=== PATIENT | female | born 1985 | race Caucasian/White ===

== ENCOUNTER 2020-04-08 15:17 | Observation (INO) | payer MEDICAID ==
[~2020-04-08] VITALS: Ht 149.9 cm; Wt 75.7 kg
[2020-04-08 16:38] LABS: CLARITY URINE CLEAR (CLEAR); COLOR URINE YELLOW (YELLOW); KETONES URINE NEGATIVE (NEGATIVE); LEUKOCYTE ESTERASE URINE 3+ (NEGATIVE); NITRITE URINE NEGATIVE (NEGATIVE); OCCULT BLOOD URINE NEGATIVE (NEGATIVE); PROTEIN URINE NEGATIVE (NEGATIVE); SPECIFIC GRAVITY URINE 1.009 (1.005-1.030); UROBILINOGEN URINE 0.2 E.U./dL (0.2-1.0)
== END 2020-04-08 17:07 | disposition home or self-care (01) ==
LOC: 8 EST LDRP 15:17
PROVIDERS: ADMIT Obstetrics & Gynecology; ATTEND Obstetrics & Gynecology
DX: O26.892 Other specified pregnancy related conditions, second trimester (principal); R10.9 Unspecified abdominal pain; Z3A.22 22 weeks gestation of pregnancy
CPT/HCPCS: 59025; 81003; G0378; 99281

== ENCOUNTER 2020-05-27 19:38 | Observation (INO) | payer MEDICAID ==
[~2020-05-27] VITALS: Ht 149.9 cm; Wt 83.0 kg
[2020-05-27] MEDS ORDERED: CALC-1098 PO (20:51)
[2020-05-27] MEDS ORDERED: FERR325T6 PO (20:51)
[2020-05-27] MEDS ORDERED: PNV1TABL50 PO (20:51)
[2020-05-27 22:22] LABS: T4 FREE 0.88 ng/dL (0.76-1.46)
== END 2020-05-27 23:00 | disposition home or self-care (01) ==
LOC: 8EST NSY 19:38 → 8 EST A/PP 20:12
PROVIDERS: ADMIT Obstetrics & Gynecology; ATTEND Obstetrics & Gynecology
DX: O99.413 Diseases of the circulatory system complicating pregnancy, third trimester (principal); R00.2 Palpitations; Z86.32 Personal history of gestational diabetes; Z86.39 Personal history of other endocrine, nutritional and metabolic disease; Z3A.28 28 weeks gestation of pregnancy
CPT/HCPCS: 36415; 59025; 76805; 76818; 82731; 84439; 84443; 84480; 93005; G0378; 84481; 99281

== ENCOUNTER 2020-06-20 04:30 | Observation (INO) | payer MEDICAID ==
[~2020-06-20] VITALS: Ht 149.9 cm; Wt 83.9 kg
[~2020-06-20 04:30] MED LIST: CALC-1098 PO; FERR325T6 PO; PNV1TABL50 PO
[2020-06-20] MEDS ORDERED: TERBUTALINE SULFATE 1MG/ML VIAL SUBCUT PRN (06:00)
[2020-06-20] MEDS ORDERED: LACTATED RINGERS 1,000 ML IV SCH (06:00)
[2020-06-20 06:32] LABS: CLARITY URINE CLEAR (CLEAR); COLOR URINE YELLOW (YELLOW); KETONES URINE NEGATIVE (NEGATIVE); LEUKOCYTE ESTERASE URINE 3+ (NEGATIVE); NITRITE URINE NEGATIVE (NEGATIVE); OCCULT BLOOD URINE NEGATIVE (NEGATIVE); PH URINE 6.5 (4.5-8.0); PROTEIN URINE NEGATIVE (NEGATIVE); SPECIFIC GRAVITY URINE 1.012 (1.005-1.030); UROBILINOGEN URINE 0.2 E.U./dL (0.2-1.0)
[2020-06-20] MEDS ORDERED: CEFAZOLIN 2,000 MG in DEXT 5% WATER 100 ML IV SCH (09:00)
== END 2020-06-20 09:50 | disposition home or self-care (01) ==
LOC: 8 EST LDRP 04:30
PROVIDERS: ADMIT Obstetrics & Gynecology; ATTEND Obstetrics & Gynecology
DX: O26.893 Other specified pregnancy related conditions, third trimester (principal); R10.30 Lower abdominal pain, unspecified; Z3A.32 32 weeks gestation of pregnancy
CPT/HCPCS: 59025; 81003; 82731; 87086; 96361; 96365; 96372; G0378; J0690; J3105; J7060; 96360; 99281

== ENCOUNTER 2020-07-02 20:07 | Observation (INO) | payer MEDICAID ==
[~2020-07-02] VITALS: Ht 149.9 cm; Wt 81.6 kg
[2020-07-02] MEDS ORDERED: TERBUTALINE SULFATE 1MG/ML VIAL SUBCUT SCH (21:30)
[2020-07-02] MEDS ORDERED: LACTATED RINGERS 1,000 ML IV SCH (21:30)
[2020-07-02 22:18] LABS: CLARITY URINE CLEAR (CLEAR); COLOR URINE YELLOW (YELLOW); KETONES URINE TRACE (NEGATIVE); LEUKOCYTE ESTERASE URINE 2+ (NEGATIVE); NITRITE URINE NEGATIVE (NEGATIVE); OCCULT BLOOD URINE NEGATIVE (NEGATIVE); PH URINE 6.5 (4.5-8.0); PROTEIN URINE NEGATIVE (NEGATIVE); SPECIFIC GRAVITY URINE 1.016 (1.005-1.030)
[2020-07-02] MEDS ORDERED: ACETAMINOPHEN 325MG TABLET PO ONE (23:15)
== END 2020-07-03 01:08 | disposition home or self-care (01) ==
LOC: 8 EST LDRP 20:07
PROVIDERS: ADMIT Obstetrics & Gynecology; ATTEND Obstetrics & Gynecology
DX: O62.9 Abnormality of forces of labor, unspecified (principal); O99.891 Other specified diseases and conditions complicating pregnancy; M54.5 Low back pain; R51.9 Headache, unspecified
CPT/HCPCS: 59025; 81003; 96360; 96361; 96372; G0378; J3105; 99281; J7120

== ENCOUNTER 2020-07-06 12:56 | Observation (INO) | payer MEDICAID | END 2020-07-06 14:47 | disposition home or self-care (01) | LOC: 8 EST LDRP 12:56 | PROVIDERS: ADMIT Obstetrics & Gynecology; ATTEND Obstetrics & Gynecology | DX: O26.893 Other specified pregnancy related conditions, third trimester (principal); R10.30 Lower abdominal pain, unspecified; O99.891 Other specified diseases and conditions complicating pregnancy; M54.5 Low back pain; Z3A.34 34 weeks gestation of pregnancy | CPT/HCPCS: 59025; G0378; 99281 ==

== ENCOUNTER 2020-07-21 16:47 | Observation (INO) | payer MEDICAID ==
[~2020-07-21] VITALS: Ht 149.9 cm; Wt 86.2 kg
[2020-07-21] MEDS ORDERED: TERBUTALINE SULFATE 1MG/ML VIAL SUBCUT NR (17:45)
== END 2020-07-21 18:45 | disposition home or self-care (01) ==
LOC: 8 EST LDRP 16:47
PROVIDERS: ADMIT Obstetrics & Gynecology; ATTEND Obstetrics & Gynecology
DX: O62.9 Abnormality of forces of labor, unspecified (principal); Z3A.36 36 weeks gestation of pregnancy; Z79.899 Other long term (current) drug therapy
CPT/HCPCS: 59025; 82962; G0378; 99281; J3105

== ENCOUNTER 2020-07-28 07:02 | Observation (INO) | payer MEDICAID ==
[~2020-07-28] VITALS: Ht 149.9 cm; Wt 86.2 kg
[2020-07-28] MEDS ORDERED: LACTATED RINGERS 1,000 ML IV SCH (08:14)
[2020-07-28] MEDS: TERBUTALINE SULFATE 1MG/ML VIAL SUBCUT PRN ×2 (08:48→09:25)
== END 2020-07-28 11:10 | disposition home or self-care (01) ==
LOC: 8 EST LDRP 07:02
PROVIDERS: ADMIT Obstetrics & Gynecology; ATTEND Obstetrics & Gynecology
DX: O62.9 Abnormality of forces of labor, unspecified (principal); Z3A.37 37 weeks gestation of pregnancy
CPT/HCPCS: 96360; 96372; G0378; J3105; 59025; 99281